=== PATIENT | female | born 1960 | race Caucasian/White ===

== ENCOUNTER 2017-04-14 14:49 | Emergency (ER) | payer SELFPAY ==
[~2017-04-14] VITALS: Ht 157.5 cm; Wt 55.0 kg
[~2017-04-14 14:49] MED LIST: ALPR0.25 PO; CARI350T20 PO; CELE200C PO; FLUT1SPR22; IBUP400T20 PO; LISI10TA PO; LORA-373 PO; PROZ20CA11 PO; VALA1TAB PO
[2017-04-14 14:53] VITALS: BP 143/91; PULSE 87; RESP 18; TEMP 98.4; O2SAT 99
--- NOTE | 2017-04-14 15:02 | PD ---
Physical Exam Time Seen by Provider: 14:58 Narrative 57yo F c/o L hand flaccidity and tingly x 2 days. Harjeet chest pain, SOB. Denies slurred speech. Denies fever, vomiting. Patient seen in triage. Awaiting bed placement. VS reviewed. Data Data Last Documented VS Vital Signs Date Time Temp Pulse Resp B/P Pulse Ox O2 Delivery O2 Flow Rate FiO2 04/14/17 14:53 98.4 87 18 143/91 99 MDM Supervised Visit with CANDIDO: Jackie Olivier April 14, 2017 15:02
[2017-04-14] MEDS ORDERED: SODIUM CHLORIDE 0.9% FLUSH 10 ML FLUSH IV FLUSH PRN (16:00)
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
[2017-04-14 17:02] VITALS: O2SAT 96
[2017-04-14 17:19] LABS: AUTOMATED NEUTROPHIL # 1.9 TH/MM3 (1.8-7.7); BASOPHIL % 0.5 % (0.0-2.0); EOSINOPHIL # 0.1 TH/MM3 (0-0.4); EOSINOPHIL % 2.4 % (0.0-4.0); HEMATOCRIT 32.6 % (35.0-46.0); HEMO FLAGS DIFF FINAL; LYMPH % 46.7 % (9.0-44.0); LYMPHOCYTE # 2.2 TH/MM3 (1.0-4.8); MEAN CELL VOLUME 95.5 FL (80.0-100.0); MEAN CORPUSCULAR HEMOGLOBIN 31.3 PG (27.0-34.0); MEAN CORPUSCULAR HGB CONC 32.7 % (32.0-36.0); NEUT % 40.4 % (16.0-70.0); PLATELET COUNT 211 TH/MM3 (150-450); RED BLOOD COUNT 3.42 MIL/MM3 (4.00-5.30); RED CELL DISTRIBUTION WIDTH 13.9 % (11.6-17.2); WHITE BLOOD COUNT 4.8 TH/MM3 (4.0-11.0)
[2017-04-14 17:22] LABS: APTT (PATIENT) 26.7 SEC (24.3-30.1); INTERNATIONAL NORMALIZED RATIO 1.1 RATIO; PROTHROMBIN TIME - PATIENT 11.8 SEC (9.8-11.6)
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
[2017-04-14 17:45] LABS: ALT (GPT) 126 U/L (10-53); ANION GAP 6 MEQ/L (5-15); AST (GOT) 151 U/L (15-37); BICARBONATE 28.1 MEQ/L (21.0-32.0); BLOOD UREA NITROGEN 24 MG/DL (7-18); CHLORIDE 101 MEQ/L (98-107); GLOMERULAR FILTRATION RATE 63 ML/MIN (>89); POTASSIUM 3.9 MEQ/L (3.5-5.1); SODIUM (NA) 135 MEQ/L (136-145)
[2017-04-14 17:46] LABS: ALKALINE PHOSPHATASE 86 U/L (45-117); TOTAL BILIRUBIN ADULT 0.4 MG/DL (0.2-1.0)
--- NOTE | 2017-04-14 17:52 | PD ---
Physical Exam Narrative Patient was seen by ED physician and signed out to me. Data Data Last Documented VS Vital Signs Date Time Temp Pulse Resp B/P Pulse Ox O2 Delivery O2 Flow Rate FiO2 04/14/17 17:02 96 04/14/17 15:33 Room Air 04/14/17 14:53 98.4 87 18 143/91 Orders Complete Blood Count With Diff (04/14/17 15:53) Comprehensive Metabolic Panel (04/14/17 15:53) Prothrombin Time / Inr (Pt) (04/14/17 15:53) Act Partial Throm Time (Ptt) (04/14/17 15:53) Iv Access Insert/Monitor (04/14/17 15:53) Ecg Monitoring (04/14/17 15:53) Oximetry (04/14/17 15:53) Sodium Chloride 0.9% Flush (Ns Flush) (04/14/17 16:00) Mri Brain W/O Contrast (04/14/17 ) Mri C Spine W/O Contrast (04/14/17 ) Splint Or Brace Apply/Monitor (04/14/17 18:25) Labs Laboratory Tests Test 04/14/17 16:55 White Blood Count 4.8 TH/MM3 Red Blood Count 3.42 MIL/MM3 Hemoglobin 10.7 GM/DL Hematocrit 32.6 % Mean Corpuscular Volume 95.5 FL Mean Corpuscular Hemoglobin 31.3 PG Mean Corpuscular Hemoglobin 32.7 % Concent Red Cell Distribution Width 13.9 % Platelet Count 211 TH/MM3 Mean Platelet Volume 8.5 FL Neutrophils (%) (Auto) 40.4 % Lymphocytes (%) (Auto) 46.7 % Monocytes (%) (Auto) 10.0 % Eosinophils (%) (Auto) 2.4 % Basophils (%) (Auto) 0.5 % Neutrophils # (Auto) 1.9 TH/MM3 Lymphocytes # (Auto) 2.2 TH/MM3 Monocytes # (Auto) 0.5 TH/MM3 Eosinophils # (Auto) 0.1 TH/MM3 Basophils # (Auto) 0.0 TH/MM3 CBC Comment DIFF FINAL Differential Comment Prothrombin Time 11.8 SEC Prothromb Time International 1.1 RATIO Ratio Activated Partial 26.7 SEC Thromboplast Time Sodium Level 135 MEQ/L Potassium Level 3.9 MEQ/L Chloride Level 101 MEQ/L Carbon Dioxide Level 28.1 MEQ/L Anion Gap 6 MEQ/L Blood Urea Nitrogen 24 MG/DL Creatinine 0.92 MG/DL Estimat Glomerular Filtration 63 ML/MIN Rate Random Glucose 81 MG/DL Calcium Level 9.1 MG/DL Total Bilirubin 0.4 MG/DL Aspartate Amino Transf 151 U/L (AST/SGOT) Alanine Aminotransferase 126 U/L (ALT/SGPT) Alkaline Phosphatase 86 U/L Total Protein 7.1 GM/DL Albumin 3.6 GM/DL [facility] Supervised Visit with CANDIDO: No Interpretation(s) Last Impressions Cervical Spine MRI 04/14/17 0000 Draft Impressions: Service Date/Time: March 16:16 - CONCLUSION: Degenerative disc disease at both C4-5 and C5-6 as described above. I do not see any cord edema or acute focal disc protrusion. James Alvarez MD Brain MRI 04/14/17 0000 Signed Impressions: Service Date/Time: March 16:16 - CONCLUSION: Normal examination. James Alvarez MD 1816 p.m. CBC WBC 4.8. Hemoglobin 10.7 hematocrit 32.6. Sodium 135. BUN 24. AST 151. ALT 126. Narrative Course Patient was seen by ED physician and signed out to me. I spoke with Dr. Gomes, neurologist. Advised Velcro wrist splint and steroid. Advised patient to follow up with him in the office. Patient Instructions: General Instructions Additional Instruction: Take medications as directed. Wet wrist splint as directed. Follow-up with neurologist, Dr. Gomes. Med/Other Pt SpecificInfo: Prescription(s) given Scripts Ranitidine (Zantac)300 Mg [id number] Mg PO DAILY #14 TAB Ref 0 Prov:Kenny Burns MD 04/14/17 Prednisone (48) 10 mg tab Dose Pack 10 Mg Dspk10 Mg PO DIRECTED #1 DSPK Ref 0 Take 60 mg daily for 2 days then 50 mg daily for 2 days and then 40 mg daily for 2 days and then 30 mg daily for 2 days and then 20 mg daily for 2 days and then 10 mg daily for 2 days and then stop. Prov:Kenny Burns MD 04/14/17 Disposition: 01 DISCHARGE HOME Condition: Stable Kenny Burns MD April 14, 2017 17:52
[2017-04-14] MEDS ORDERED: PRED10PA2 PO (18:32)
[2017-04-14] MEDS ORDERED: ZANT300T PO (18:34)
--- NOTE | 2017-04-25 12:34 | PD ---
Physical Exam Narrative Patient was signed out to me from Dr. Purdy. Data Data Orders Complete Blood Count With Diff (04/14/17 15:53) Comprehensive Metabolic Panel (04/14/17 15:53) Prothrombin Time / Inr (Pt) (04/14/17 15:53) Act Partial Throm Time (Ptt) (04/14/17 15:53) Iv Access Insert/Monitor (04/14/17 15:53) Ecg Monitoring (04/14/17 15:53) Oximetry (04/14/17 15:53) Sodium Chloride 0.9% Flush (Ns Flush) (04/14/17 16:00) Mri Brain W/O Contrast (04/14/17 ) Mri C Spine W/O Contrast (04/14/17 ) Splint Or Brace Apply/Monitor (04/14/17 18:25) Cockup Hand Splint (04/14/17 ) MDM Supervised Visit with CANDIDO: No Diagnosis Primary Impression: Neuritis Patient Instructions: General Instructions Departure Forms: Tests/Procedures Additional Instruction: Take medications as directed. Wet wrist splint as directed. Follow-up with neurologist, Dr. Gomes. Scripts Ranitidine (Zantac)300 Mg [id number] Mg PO DAILY #14 TAB Ref 0 Prov:Kenny Burns MD 04/14/17 Prednisone (48) 10 mg tab Dose Pack 10 Mg Dspk10 Mg PO DIRECTED #1 DSPK Ref 0 Take 60 mg daily for 2 days then 50 mg daily for 2 days and then 40 mg daily for 2 days and then 30 mg daily for 2 days and then 20 mg daily for 2 days and then 10 mg daily for 2 days and then stop. Prov:Kenny Burns MD 04/14/17 Disposition: 01 DISCHARGE HOME Condition: Stable Kenny Burns MD April 25, 2017 12:33
== END 2017-04-14 18:43 | disposition home or self-care (01) ==
LOC: NEPD 14:49
DX: M79.2 Neuralgia and neuritis, unspecified (principal); R20.0 Anesthesia of skin; R53.1 Weakness; M54.2 Cervicalgia; G89.29 Other chronic pain; I10 Essential (primary) hypertension; B19.20 Unspecified viral hepatitis C without hepatic coma
CPT/HCPCS: 70551; 72141; 80053; 85025; 85610; 85730; 99284; L3908